=== PATIENT | male | born 1965 | race Caucasian/White ===

== ENCOUNTER 2019-12-28 17:01 | Inpatient (IN) | payer BC, OTHER ==
[2019-12-28] VITALS (7 sets, daily range): BP systolic 104–157; BP diastolic 63–111
[~2019-12-28] VITALS: Ht 178 cm; Wt 75.3 kg
[2019-12-28] MEDS ORDERED: KETOROLAC 30 MG/ML VIAL IVP ONE (17:15)
[2019-12-28] MEDS ORDERED: ASPIRIN 81 MG CHEW (CHILDREN'S ASA) PO ONE (17:15)
--- NOTE | 2019-12-28 17:15 | ED General ---
General Stated Complaint: CP/L ARM PAIN/COLD SWEATS Source of Information: Patient Exam Limitations: No Limitations History of Present Illness Date Seen by Provider: Dec 28, 2019 Time Seen by Provider: 17:13 Initial Comments To ER with left upper chest pain sharp in nature that radiates down the left arm. No cough. No fevers. He does have shortness of breath that also started 1 hour ago. His symptoms began while he was at rest getting ready to go to work at [employer]. He has no fevers or cough or headache. He does not smoke. Timing/Duration: 1-2 Days Severity: Moderate Associated Systoms: Denies Symptoms Allergies and Home Medications Allergies Coded Allergies: No Known Drug Allergies (Unverified , 12/28/19) Patient Home Medication List Home Medication List Reviewed: Yes Review of Systems Review of Systems Constitutional: see HPI; No chills, No fever EENTM: see HPI Respiratory: see HPI, short of breath Cardiovascular: see HPI, chest pain Genitourinary: no symptoms reported Musculoskeletal: no symptoms reported Skin: no symptoms reported Psychiatric/Neurological: No Symptoms Reported Hematologic/Lymphatic: No Symptoms Reported Immunological/Allergic: no symptoms reported Past Xpxcnmr-Uqsdoy-Dkeayh Hx Patient Social History Recent Foreign Travel: No Contact w/Someone Who Travel: No Physical Exam Vital Signs Vital Signs - First Documented 12/28/19 17:18 Temp 36.8 Pulse 52 Resp 18 B/P (MAP) 148/94 (112) Pulse Ox 98 O2 Delivery Room Air Capillary Refill : Height, Weight, BMI Height: '" Weight: lbs. oz. kg; BMI Method: General Appearance: No Apparent Distress, WD/WN Eyes: Bilateral Eye Normal Inspection, Bilateral Eye PERRL, Bilateral Eye EOMI HEENT: PERRL/EOMI, TMs Normal Neck: Full Range of Motion, Normal Inspection Respiratory: Lungs Clear, Normal Breath Sounds, No Accessory Muscle Use, No Respiratory Distress Cardiovascular: Regular Rate, Rhythm, Normal Peripheral Pulses Gastrointestinal: Normal Bowel Sounds, Non Tender, Soft Extremity: Normal Capillary Refill, Normal Inspection Neurologic/Psychiatric: Alert, Oriented x3 Skin: Normal Color, Warm/Dry Progress/Results/Core Measures Suspected Sepsis SIRS Temperature: Pulse: Respiratory Rate: Laboratory Tests 12/28/19 17:25: White Blood Count 9.3 Blood Pressure / Mean: Laboratory Tests 12/28/19 17:25: Creatinine 1.06, INR Comment 0.9, Platelet Count 180, Total Bilirubin 0.2 Results/Orders Lab Results Laboratory Tests Test 12/28/19 17:25 12/28/19 19:20 Range/Units White Blood Count 9.3 4.3-11.0 10^3/uL Red Blood Count 5.07 4.35-5.85 10^6/uL Hemoglobin 15.7 13.3-17.7 G/DL Hematocrit 44 40-54 % Mean Corpuscular Volume 87 80-99 FL Mean Corpuscular Hemoglobin 31 25-34 PG Mean Corpuscular Hemoglobin Concent 35 32-36 G/DL Red Cell Distribution Width 13.3 10.0-14.5 % Platelet Count 180 130-400 10^3/uL Mean Platelet Volume 11.6 H 7.4-10.4 FL Neutrophils (%) (Auto) 34 L 42-75 % Lymphocytes (%) (Auto) 60 H 12-44 % Monocytes (%) (Auto) 5 0-12 % Eosinophils (%) (Auto) 1 0-10 % Basophils (%) (Auto) 1 0-10 % Neutrophils # (Auto) 3.1 1.8-7.8 X 10^3 Lymphocytes # (Auto) 5.6 H 1.0-4.0 X 10^3 Monocytes # (Auto) 0.4 0.0-1.0 X 10^3 Eosinophils # (Auto) 0.1 0.0-0.3 10^3/uL Basophils # (Auto) 0.1 0.0-0.1 10^3/uL Prothrombin Time 12.2 12.2-14.7 SEC INR Comment 0.9 0.8-1.4 Activated Partial Thromboplast Time 29 24-35 SEC D-Dimer 0.56 H 0.00-0.49 UG/ML Sodium Level 134 L 135-145 MMOL/L Potassium Level 4.4 3.6-5.0 MMOL/L Chloride Level 104 98-107 MMOL/L Carbon Dioxide Level 19 L 21-32 MMOL/L Anion Gap 11 5-14 MMOL/L Blood Urea Nitrogen 17 7-18 MG/DL Creatinine 1.06 0.60-1.30 MG/DL Estimat Glomerular Filtration Rate > 60 BUN/Creatinine Ratio 16 Glucose Level 111 H 70-105 MG/DL Calcium Level 8.8 8.5-10.1 MG/DL Corrected Calcium 8.9 8.5-10.1 MG/DL Magnesium Level 1.9 1.6-2.4 MG/DL Total Bilirubin 0.2 0.1-1.0 MG/DL Aspartate Amino Transf (AST/SGOT) 21 5-34 U/L Alanine Aminotransferase (ALT/SGPT) 15 0-55 U/L Alkaline Phosphatase 73 40-136 U/L Myoglobin 84.5 10.0-92.0 NG/ML Troponin I < 0.028 0.128 H <0.028 NG/ML B-Type Natriuretic Peptide 29.5 <100.0 PG/ML Total Protein 6.4 6.4-8.2 GM/DL Albumin 3.9 3.2-4.5 GM/DL My Orders Orders - GORDON BUSH APRN Cbc With Automated Diff (12/28/19 17:10) Magnesium (12/28/19 17:10) Chest 1 View, Ap/Pa Only (12/28/19 17:10) Ekg Tracing (12/28/19 17:10) Comprehensive Metabolic Panel (12/28/19 17:10) Myoglobin Serum (12/28/19 17:10) Protime With Inr (12/28/19 17:10) Partial Thromboplastin Time (12/28/19 17:10) O2 (12/28/19 17:10) Monitor-Rhythm Ecg Trace Only (12/28/19 17:10) Lipid Panel (12/29/19 06:00) Ed Iv/Invasive Line Start (12/28/19 17:10) BNP (12/28/19 17:10) Fibrin Degradation Products (12/28/19 17:10) Troponin I (12/28/19 17:10) Aspirin Chewable Tablet (Baby Aspirin Ch (12/28/19 17:15) Ketorolac Injection (Toradol Injection) (12/28/19 17:15) Troponin I (12/28/19 19:12) Enoxaparin Injection (Lovenox Injection) (12/28/19 20:15) Clopidogrel Tablet (Plavix Tablet) (12/28/19 20:15) Atorvastatin Tablet (Lipitor Tablet) (12/28/19 21:00) Medications Given in ED Current Medications Medications Dose Ordered Sig/Ania Route Start Time Stop Time Status Last Admin Dose Admin Aspirin 324 mg ONCE ONCE PO 12/28/19 17:15 12/28/19 17:16 DC 12/28/19 17:36 324 MG Ketorolac Tromethamine 15 mg ONCE ONCE IVP 12/28/19 17:15 12/28/19 17:16 DC 12/28/19 17:36 15 MG Vital Signs/I&O 12/28/19 17:18 Temp 36.8 Pulse 52 Resp 18 B/P (MAP) 148/94 (112) Pulse Ox 98 O2 Delivery Room Air Capillary Refill : Departure Communication (Admissions) Time/Spoke to Admitting Phy: 20:06 2005-discussed with Dr. Sanots and Dr. Back, we will admit use Lovenox treatment dose, aspirin, Plavix bolus, statin. 1944-he is chest pain-free as he has been since receiving the Toradol. We are awaiting repeat troponin to come back. 2005-still completely pain-free. However his second troponin came back little elevated. Impression Primary Impression: Chest pain Qualified Codes: R07.9 - Chest pain, unspecified Disposition: ADMITTED INPATIENT Condition: Stable Admissions Decision to Admit Reason: Admit from ER (General) Decision to Admit/Date: Dec 28, 2019 Time/Decision to Admit Time: 20:06 Departure-Patient Inst. Decision time for Depature: 19:45 Referrals: NO,LOCAL PHYSICIAN (PCP/Family) Primary Care Physician Patient Instructions: Chest Pain (DC) Add. Discharge Instructions: Follow-up with your doctor later this week for recheck. Return to ER for any worsening. GORDON BUSH APRN Dec 28, 2019 17:15
[2019-12-28 17:35] LABS: BASOPHILS # (AUTO) 0.1 10^3/uL (0.0-0.1); BASOPHILS % (AUTO) 1 % (0-10); EOSINOPHILS # (AUTO) 0.1 10^3/uL (0.0-0.3); EOSINOPHILS % (AUTO) 1 % (0-10); HEMATOCRIT 44 % (40-54); HEMOGLOBIN 15.7 G/DL (13.3-17.7); LYMPHOCYTES # (AUTO) 5.6 X 10^3 (1.0-4.0); LYMPHOCYTES % (AUTO) 60 % (12-44); MEAN CORPUSCULAR HEMOGLOBIN 31 PG (25-34); MEAN CORPUSCULAR HGB CONC 35 G/DL (32-36); MEAN CORPUSCULAR VOLUME 87 FL (80-99); MEAN PLATELET VOLUME 11.6 FL (7.4-10.4); MONOCYTES # (AUTO) 0.4 X 10^3 (0.0-1.0); MONOCYTES % (AUTO) 5 % (0-12); NEUTROPHILS # (AUTO) 3.1 X 10^3 (1.8-7.8); NEUTROPHILS % (AUTO) 34 % (42-75); PLATELET COUNT 180 10^3/uL (130-400); RED CELL DISTRIBUTION WIDTH 13.3 % (10.0-14.5); WHITE BLOOD COUNT 9.3 10^3/uL (4.3-11.0)
--- NOTE | 2019-12-28 17:36 | Diagnostic Imaging Report ---
INDICATION: Chest pain. EXAMINATION: Single AP view of the chest was obtained. COMPARISON: No previous study is available for comparison at this time. FINDINGS: Heart size and pulmonary vasculature are within normal limits, and the lungs are clear, bilaterally. IMPRESSION: Unremarkable chest. Dictated by: Dictated on workstation # [id number]
[2019-12-28 17:47] LABS: INR 0.9 (0.8-1.4); PROTHROMBIN TIME PATIENT 12.2 SEC (12.2-14.7)
[2019-12-28 17:51] LABS: ALBUMIN 3.9 GM/DL (3.2-4.5); CHLORIDE 104 MMOL/L (98-107); POTASSIUM 4.4 MMOL/L (3.6-5.0); SODIUM 134 MMOL/L (135-145)
[2019-12-28 17:53] LABS: CALCIUM 8.8 MG/DL (8.5-10.1)
[2019-12-28 17:54] LABS: GLUCOSE 111 MG/DL (70-105); TOTAL PROTEIN 6.4 GM/DL (6.4-8.2)
[2019-12-28 17:55] LABS: BILIRUBIN,TOTAL 0.2 MG/DL (0.1-1.0); CARBON DIOXIDE 19 MMOL/L (21-32)
[2019-12-28 17:57] LABS: ALKALINE PHOSPHATASE 73 U/L (40-136); CREATININE SERUM 1.06 MG/DL (0.60-1.30); GFR ESTIMATED > 60
[2019-12-28 17:58] LABS: BUN/CREATININE RATIO 16
[2019-12-28 18:00] LABS: ALANINE AMINOTRANSFERASE 15 U/L (0-55)
[2019-12-28 18:01] LABS: MAGNESIUM 1.9 MG/DL (1.6-2.4)
[2019-12-28] MEDS ORDERED: CLOPIDOGREL 300 MG (PLAVIX) TABLET PO ONE (20:15)
[2019-12-28] MEDS ORDERED: ENOXAPARIN 80 MG/0.8 ML (LOVENOX) SYR SC ONE (20:15)
--- OUTSIDE RECORDS SUMMARY | 2019-12-28 20:25 | XMS REPORT | Continuity of Care Document ---
Demographics Preferred Language Unknown Marital Status Unknown Muslim Affiliation Unknown Race Unknown Ethnic Group Unknown Author Organization Unknown Address Unknown Phone Unavailable Allergies There is no data. Medications There is no data. Problems There is no data. Procedures There is no data. Results Test Result Range Complete blood count (CBC) with automate d white blood cell (WBC) differential - 12/28/19 17:25 Blood leukocytes automated count (number/volume) 9.3 10*3/uL 4.3-11.0 Blood erythrocytes automated count (number/volume) 5.07 10*6/uL 4.35-5.85 Venous blood hemoglobin measurement (mass/volume) 15.7 g/dL 13.3-17.7 Blood hematocrit (volume fraction) 44 % 40-54 Automated erythrocyte mean corpuscular volume 87 [ foz_us] 80-99 Automated erythrocyte mean corpuscular h emoglobin (mass per erythrocyte) 31 pg 25-34 Automated erythrocyte mean corpuscular h emoglobin concentration measurement (mass/volume) 35 g/dL 32-36 Automated erythrocyte distribution width ratio 13. 3 % 10.0- 14.5 Automated blood platelet count (count/volume) 180 10*3/uL 130-400 Automated blood platelet mean volume measurement 11.6 [foz_us] 7.4-10.4 Automated blood neutrophils/100 leukocytes 34 % 42-75 Automated blood lymphocytes/100 leukocytes 60 % 12-44 Blood monocytes/100 leukocytes 5 % 0-12 Automated blood eosinophils/100 leukocytes 1 % 0-10 Automated blood basophils/100 leukocytes 1 % 0-10 Blood neutrophils automated count (number/volume) 3.1 10*3 1.8-7.8 Blood lymphocytes automated count (number/volume) 5.6 10*3 1.0-4.0 Blood monocytes automated count (number/volume) 0. 4 10*3 0.0-1.0 Automated eosinophil count 0.1 10*3/uL 0 .0-0.3 Automated blood basophil count (count/volume) 0.1 10*3/uL 0.0-0.1 PT panel in platelet poor plasma by coag ulation assay - 12/28/19 17:25 Prothrombin time (PT) in platelet poor plasma by coagu lation assay 12.2 s 12.2-14.7 INR in platelet poor plasma or blood by coagulation as say 0.9 0.8-1.4 Activated partial thromboplastin time (a PTT) in platelet poor plasma bycoagulation assay - 12/28/19 17:25 Activated partial thromboplastin time (a PTT) in platelet poor plasma bycoagulation assay 29 s 24-35 Comprehensive metabolic panel - 12/28/19 17:25 Serum or plasma sodium measurement (moles/volume) 134 mmol/L 135-145 Serum or plasma potassium measurement (moles/volume) 4.4 mmol/L 3.6-5.0 Serum or plasma chloride measurement (moles/volume) 104 mmol/L 98-107 Carbon dioxide 19 mmol/L 21-32 Serum or plasma anion gap determination (moles/volume) 11 mmol/L 5-14 Serum or plasma urea nitrogen measurement (mass/volume ) 17 mg/dL 7-18 Serum or plasma creatinine measurement (mass/volume) 1.06 mg/dL 0.60-1.30 Serum or plasma urea nitrogen/creatinine mass ratio 16 NRG Serum or plasma creatinine measurement w ith calculation of estimated glomerular filtration rate > NRG Serum or plasma glucose measurement (mass/volume) 111 mg/dL 70-105 Serum or plasma calcium measurement (mass/volume) 8.8 mg/dL 8.5-10.1 Serum or plasma total bilirubin measurement (mass/volu me) 0.2 mg/dL 0.1-1.0 Serum or plasma alkaline phosphatase amparo surement (enzymatic activity/volume) 73 U/L 40-136 Serum or plasma aspartate aminotransfera se measurement (enzymatic activity/volume) 21 U/L 5-34 Serum or plasma alanine aminotransferase measurement (enzymatic activity/volume) 15 U/L 0-55 Serum or plasma protein measurement (mass/volume) 6.4 g/dL 6.4-8.2 Serum or plasma albumin measurement (mass/volume) 3.9 g/dL 3.2-4.5 CALCIUM CORRECTED 8.9 mg/dL 8.5-10.1 Fibrin D-dimer FEU measurement in platel et poor plasma (mass/volume) - 12/28/19 17:25 Fibrin D-dimer FEU measurement in platelet poor plasma (mass/volume) 0.56 ug/mL 0.00-0.49 Magnesium - 12/28/19 17:25 Magnesium 1.9 mg/dL 1.6-2.4 Myoglobin, serum - 12/28/19 17:25 Myoglobin, serum 84.5 ng/mL 10.0-92.0 Serum or plasma lithium measurement (mol es/volume) - 12/28/19 17:25 BNP PT 29.5 pg/mL <100.0 Serum or plasma troponin i.cardiac measu rement (mass/volume) - 12/28/19 17:25 Serum or plasma troponin i.cardiac measurement (mass/v olume) < ng/mL <0.028 Serum or plasma troponin i.cardiac measu rement (mass/volume) - 12/28/19 19:20 Serum or plasma troponin i.cardiac measurement (mass/v olume) 0.128 ng/mL <0.028 Encounters ACCT No. Visit Date/Time Discharge Status Pt. Type Provider Facility Loc./Unit Complaint [id number] 12/28/2019 17:36:00 Document Registration
[2019-12-28] MEDS ORDERED: NS IV 1000 ML 0 ML ONE (21:11)
[2019-12-28] MEDS: NS IV 1000 ML 1,000 ML IV SCH (21:15)
[2019-12-28] MEDS ORDERED: NS IV 1000 ML 1,000 ML ONE (21:18)
[2019-12-28] MEDS ORDERED: NS IV 1000 ML 1,000 ML IV SCH (21:45)
[2019-12-28] MEDS ORDERED: LORazepam INJ 2 MG/ML (ATIVAN) VIAL IVP PRN (21:45)
[2019-12-28] MEDS ORDERED: LORazepam INJ 2 MG/ML (ATIVAN) VIAL IV PRN (21:45)
--- NOTE | 2019-12-28 21:56 | NUR ---
THIS RN TALKED TO E-ICU, UPDATED ON PATIENT STATUS, NOTIFIED OF BRADYCARDIA.
[2019-12-28] MEDS ORDERED: ACETAMINOPHEN 325 MG TABLET PO PRN (22:30)
[2019-12-28] MEDS ORDERED: morphine INJ 4 MG/ML 1 ML (VIAL/SYRINGE) IV PRN (22:30)
[2019-12-28] MEDS ORDERED: NITROGLYCERIN 0.4 MG SL TABS BTL 25'S SL PRN (22:30)
[2019-12-28] MEDS ORDERED: oxyCODONE/APAP 5/325MG (PERCOCET 5) TABLET PO PRN (22:30)
[2019-12-28] MEDS: NITROGLYCERIN 2% OINT 1 GM UNIT DOSE PACKET TOP SCH (23:00)
[2019-12-29] VITALS (11 sets, daily range): BP systolic 94–117; BP diastolic 70–84
[2019-12-29 05:04] LABS: BASOPHILS % (AUTO) 0 % (0-10); EOSINOPHILS # (AUTO) 0.1 10^3/uL (0.0-0.3); EOSINOPHILS % (AUTO) 1 % (0-10); HEMATOCRIT 41 % (40-54); HEMOGLOBIN 14.3 G/DL (13.3-17.7); LYMPHOCYTES # (AUTO) 5.2 X 10^3 (1.0-4.0); LYMPHOCYTES % (AUTO) 55 % (12-44); MEAN CORPUSCULAR HEMOGLOBIN 31 PG (25-34); MEAN CORPUSCULAR HGB CONC 35 G/DL (32-36); MEAN CORPUSCULAR VOLUME 88 FL (80-99); MEAN PLATELET VOLUME 11.5 FL (7.4-10.4); MONOCYTES # (AUTO) 0.5 X 10^3 (0.0-1.0); MONOCYTES % (AUTO) 5 % (0-12); NEUTROPHILS # (AUTO) 3.6 X 10^3 (1.8-7.8); NEUTROPHILS % (AUTO) 38 % (42-75); PLATELET COUNT 165 10^3/uL (130-400); RED CELL DISTRIBUTION WIDTH 13.2 % (10.0-14.5); WHITE BLOOD COUNT 9.4 10^3/uL (4.3-11.0)
[2019-12-29 05:23] LABS: CHLORIDE 106 MMOL/L (98-107); POTASSIUM 4.4 MMOL/L (3.6-5.0); SODIUM 136 MMOL/L (135-145)
[2019-12-29 05:24] LABS: CALCIUM 8.2 MG/DL (8.5-10.1)
[2019-12-29 05:25] LABS: GLUCOSE 102 MG/DL (70-105); TRIGLYCERIDES 146 MG/DL (<150); VLDL CHOLESTEROL 29 MG/DL (5-40)
[2019-12-29 05:27] LABS: CARBON DIOXIDE 22 MMOL/L (21-32)
[2019-12-29 05:29] LABS: CREATININE SERUM 1.02 MG/DL (0.60-1.30); GFR ESTIMATED > 60
[2019-12-29 05:30] LABS: BUN/CREATININE RATIO 15; CHOLESTEROL 125 MG/DL (< 200)
[2019-12-29 05:31] LABS: HDL CHOLESTEROL 39 MG/DL (40-60)
[2019-12-29] MEDS: NITROGLYCERIN 2% OINT 1 GM UNIT DOSE PACKET TOP SCH (06:21)
[2019-12-29] MEDS: NS IV 1000 ML 1,000 ML IV SCH (07:11)
--- NOTE | 2019-12-29 08:15 | Short Stay Summary-Hospitalist ---
History of Present Illness HPI/Chief Complaint Pt is a 54yoCM with no diagnosed PMH who presented to the Er due to chest pain. He states it started at rest just prior to going to work. He states it radiated to his left arm and he was SOB. Original troponin was negative but repeat 2 hours later trended up and he was admitted for observation. He described it as sharp and was given toradol in the ER which made it go away. With increasing troponin was was given Lovenox, Plavix and ASA. He has done well overnight. Despite this treatment though his troponin continues to rise. I examined him while Dr Back was at the bedside discussing cardiac cath or conservative management. Cath was recommended and all risks and benefits were discussed with the patient. He declined cardiac cath and would like to discharge home because he states he "doesn't like doctors." Source: patient Date Seen 12/29/19 Time Seen by a Provider: 08:09 Attending Physician Cherelle Santos MD PCP No,Local Physician Referring Physician Date of Admission Dec 28, 2019 at 20:05 Home Medications & Allergies Home Medications Reviewed patient Home Medication Reconciliation performed by pharmacy medication reconciliations fire control technician g and/or nursing. Patients Allergies have been reviewed. Allergies Allergies Coded Allergies No Known Drug Allergies (Unverified12/28/19) Past Caskmrj-Gcqjki-Qxriiv Hx Past Med/Social Hx: Reviewed Nursing Past Med/Soc Hx Patient Social History Employed/Student: employed Alcohol Use: Denies Use Recreational Drug Use: No Smoking Status: Former Smoker (quite 2016) Recent Foreign Travel: No Contact w/other who traveled: No Recent Infectious Disease Expo: No Family History Reviewed Nursing Family Hx No Pertinent Family Hx Review of Systems Constitutional: No chills, No fever EENTM: no symptoms reported Respiratory: see HPI, short of breath Cardiovascular: see HPI, chest pain; No edema, No Hx of Intervention, No palpitations, No syncope Gastrointestinal: No abdominal pain, No constipation, No nausea, No vomiting Genitourinary: No dysuria, No incontinence Musculoskeletal: muscle cramps Skin: no symptoms reported Psychiatric/Neurological: No Symptoms Reported Physical Exam Physical Exam Vital Signs Vital Signs - First Documented 12/28/19 17:18 Temp 36.8 Pulse 52 Resp 18 B/P (MAP) 148/94 (112) Pulse Ox 98 Capillary Refill : Less Than 3 Seconds Height, Weight, BMI Height: '" Weight: lbs. oz. kg; 23.38 BMI Method: General Appearance: No Apparent Distress, WD/WN, Thin Eyes: Bilateral Eye Normal Inspection, Bilateral Eye PERRL, Bilateral Eye EOMI HEENT: PERRL/EOMI, Moist Mucous Membranes; No Scleral Icterus (L), No Scleral Icterus (R); Other (poor dentition) Neck: Normal Inspection, Supple Respiratory: Lungs Clear, No Accessory Muscle Use, No Respiratory Distress Cardiovascular: Regular Rate, Rhythm, No JVD, No Murmur Gastrointestinal: Normal Bowel Sounds, Non Tender, Soft; No Distended, No Guarding Extremity: Normal Inspection, Non Tender; No Swelling Neurologic/Psychiatric: Alert, Oriented x3, Normal Mood/Affect Skin: Normal Color, Warm/Dry Results Results/Procedures Labs Laboratory Tests 12/28/19 17:25 12/29/19 04:57 Patient resulted labs reviewed. Imaging [facility]. [place], [place] NAME: LYDIA ROSALES [facility] REC#: [id number] PT STATUS: REG ER : 1965 PHYSICIAN: GORDON BUSH APRN ADMIT DATE: 12/28/19/ER Signed Date of Exam:12/28/19 CHEST 1 VIEW, AP/PA ONLY INDICATION: Chest pain. EXAMINATION: Single AP view of the chest was obtained. COMPARISON: No previous study is available for comparison at this time. FINDINGS: Heart size and pulmonary vasculature are within normal limits, and the lungs are clear, bilaterally. IMPRESSION: Unremarkable chest. Dictated by: Dictated on workstation # [id number] Dict: 12/28/191729 Trans: 12/28/191935 [facility] [id number] Interpreted by: SNEHA SOLROIO MD Electronically signed by: SNEHA SOLORIO MD 12/28/191935 Short Stay Diagnosis Discharge Diagnosis-Short Stay Admission Diagnosis NSTEMI Final Discharge Diagnosis NSTEMI Conclusion Plan NSTEMI Chest pain now resolved but troponin trending up Continue on ASA, Plavix, and statin Cardiology consulted, appreciate recs Cardiac Cath recommended, pt declined I personally discussed with patient the risk of worsening disease that could result in significant heart damage and debility and even , he expressed understanding Advised to ambulate first and make sure no recurrence of chest pain Will likely DC home this afternoon if remains chest pain free Clinical Quality Measures AMI/AHF: ASA po Prior to arrival: No DVT/VTE Risk/Contraindication: Risk Factor Score Per Nursin RFS Level Per Nursing on Admit: 2=Moderate SANDIE JONES MD Dec 29, 2019 08:15
[2019-12-29] MEDS ORDERED: ASPI-999 PO (08:24)
[2019-12-29] MEDS ORDERED: CLOP75TA28 PO (08:24)
[2019-12-29] MEDS ORDERED: ATOR20TA66 PO (08:24)
[2019-12-29] MEDS ORDERED: ENOXAPARIN 80 MG/0.8 ML (LOVENOX) SYR SC SCH (09:00)
[2019-12-29] MEDS ORDERED: CLOPIDOGREL 75 MG (PLAVIX) TABLET PO SCH (09:00)
[2019-12-29] MEDS ORDERED: ASPIRIN 81 MG CHEW (CHILDREN'S ASA) PO SCH (09:00)
--- NOTE | 2019-12-29 09:44 | Consultation-Cardiology ---
HPI-Cardiology Cardiology Consultation: Date of Consultation 12/29/19 Time Seen by a Provider: 07:50 Date of Admission Attending Physician Cherelle Santos MD Admitting Physician No,Local Physician Consulting Physician SATNAM BOTELLO MD, FACP, FACC HPI: Chief Complaint: CC: Chest discomfort HPI 54 yo man admitted to the Hospitalist [facility] [place], [place] on the night of 12/28/19 with midsternal, sharp chest pain that radiated to the L shoulder and was associated with some diaphoresis and shortness of breath. It was relieved in ER with Toradol. Chest pain did not recur but did have transient L shoulder discomfort during the night. No symptoms this morning. Denies fever of chills. Has never experienced such chest discomfort before. Denies shortness of breath or leg swelling or cough Review of Systems-Cardiology Review of Systems Constitutional: No malaise, No tiredness, No weight loss, No weight gain Eyes: No vision change Ears/Nose/Throat: No ear discharge, No nasal drainage, No recent hearing loss Respiratory: As described under HPI Cardiovascular: As described under HPI Gastrointestinal: No constipation, No diarrhea, No vomiting Genitourinary: No dysuria, No hematuria, No urine frequency changes Musculoskeletal: No back pain, No joint pain Skin: No rash, No ulcerations Psychiatric/Neurological: No seizure, No focal weakness, No syncope Hematologic: No bleeding abnormalities QOQ-Hfueyi-Jpzwal Hx Patient Social History Employed/Student: employed Alcohol Use: Denies Use Recreational Drug Use: No Smoking Status: Former Smoker (quite 2016) Recent Foreign Travel: No Recent Infectious Disease Expo: No Hospitalization with Isolation: Denies Past Medical History PMH As described under Assessment. Family Medical History Family Medical History: Does not report fam h/o early CAD Allergies and Home Medications Allergies Coded Allergies: No Known Drug Allergies (Unverified , 12/28/19) Home Medications Aspirin 81 Mg Tab.chew, 81 MG PO DAILY@0900 Prescribed by: SANDIE PRICE on 12/29/19 08 Atorvastatin Calcium 20 Mg Tablet, 40 MG PO HS Prescribed by: SANDIE PRICE on 12/29/19823 Clopidogrel Bisulfate 75 Mg Tablet, 75 MG PO DAILY Prescribed by: SANDIE PRICE on 12/29/19823 Patient Home Medication List Home Medication List Reviewed: Yes Physical Exam-Cardiology Physical Exam Vital Signs/I&O 12/28/19 12/28/19 12/28/19 12/28/19 21:45 21:59 22:00 22:30 Pulse 44 46 B/P (MAP) 157/96 (116) 126/74 (91) 110/63 (79) Pulse Ox 100 99 100 O2 Delivery Room Air Room Air Room Air Room Air 12/28/19 12/28/19 12/29/19 12/29/19 23:00 23:08 00:00 00:00 Temp 36.8 Pulse 69 B/P (MAP) 104/68 (80) Pulse Ox 100 100 O2 Delivery Room Air Room Air Room Air 12/29/19 12/29/19 12/29/19 12/29/19 00:00 01:00 01:00 02:00 Pulse 47 58 58 54 B/P (MAP) 94/70 (78) 113/75 (88) 113/84 (94) Pulse Ox 99 99 99 O2 Delivery Room Air Room Air Room Air 12/29/19 12/29/19 12/29/19 12/29/19 03:00 04:00 04:00 04:00 Temp 36.9 Pulse 53 50 B/P (MAP) 108/76 (87) 105/77 (86) Pulse Ox 98 99 O2 Delivery Room Air Room Air Room Air 12/29/19 12/29/19 12/29/19 12/29/19 05:00 07:00 07:00 08:00 Pulse 54 52 51 B/P (MAP) 103/71 (82) 108/76 (87) Pulse Ox 97 100 O2 Delivery Room Air Room Air Room Air 12/29/19 12/29/19 08:00 09:28 Pulse 61 B/P (MAP) 111/71 (84) Pulse Ox 100 100 O2 Delivery Room Air Room Air 12/29/19 00:00 Intake Total 0 ml Balance 0 ml Capillary Refill : NONE Constitutional: AAO x 3, well-developed, well-nourished HEENT: PERRL, EOMI, hearing is well preserved; No xanthelasmas are seen Neck: carotid pulses are 2 + bilaterally, with good upstrokes Respiratory: No accessory muscle use; other (good, bilateral air entry) Cardiovascular: regular rate-rhythm, S1 and S2 Gastrointestinal: No tender; soft; No guarding, No rebound; audible bowel sounds Extremities: No clubbing, No cyanosis, No significant edema Neurologic/Psychiatric: oriented x 3, other (moves all limbs equally) Skin: No rash on exposed areas, No ulcerations on exposed areas Data Review Labs Laboratory Tests 12/28/19 17:25: White Blood Count 9.3, Red Blood Count 5.07, Hemoglobin 15.7, Hematocrit 44, Mean Corpuscular Volume 87, Mean Corpuscular Hemoglobin 31, Mean Corpuscular Hemoglobin Concent 35, Red Cell Distribution Width 13.3, Platelet Count 180, Mean Platelet Volume 11.6H, Neutrophils (%) (Auto) 34L, Lymphocytes (%) (Auto) 60H, Monocytes (%) (Auto) 5, Eosinophils (%) (Auto) 1, Basophils (%) (Auto) 1, Neutrophils # (Auto) 3.1, Lymphocytes # (Auto) 5.6H, Monocytes # (Auto) 0.4, Eosinophils # (Auto) 0.1, Basophils # (Auto) 0.1, Prothrombin Time 12.2, INR Comment 0.9, Activated Partial Thromboplast Time 29, D-Dimer 0.56H, Sodium Level 134L, Potassium Level 4.4, Chloride Level 104, Carbon Dioxide Level 19L, Anion Gap 11, Blood Urea Nitrogen 17, Creatinine 1.06, Estimat Glomerular Filtration Rate > 60, BUN/Creatinine Ratio 16, Glucose Level 111H, Calcium Level 8.8, Corrected Calcium 8.9, Magnesium Level 1.9, Total Bilirubin 0.2, Aspartate Amino Transf (AST/SGOT) 21, Alanine Aminotransferase (ALT/SGPT) 15, Alkaline Phosphatase 73, Myoglobin 84.5, Troponin I < 0.028, B-Type Natriuretic Peptide 29.5, Total Protein 6.4, Albumin 3.9 12/28/19 19:20: Troponin I 0.128H 12/29/19 00:14: Troponin I 0.537*H 12/29/19 04:57: White Blood Count 9.4, Red Blood Count 4.67, Hemoglobin 14.3, Hematocrit 41, Mean Corpuscular Volume 88, Mean Corpuscular Hemoglobin 31, Mean Corpuscular Hemoglobin Concent 35, Red Cell Distribution Width 13.2, Platelet Count 165, Mean Platelet Volume 11.5H, Neutrophils (%) (Auto) 38L, Lymphocytes (%) (Auto) 55H, Monocytes (%) (Auto) 5, Eosinophils (%) (Auto) 1, Basophils (%) (Auto) 0, Neutrophils # (Auto) 3.6, Lymphocytes # (Auto) 5.2H, Monocytes # (Auto) 0.5, Eosinophils # (Auto) 0.1, Basophils # (Auto) 0.0, Sodium Level 136, Potassium Level 4.4, Chloride Level 106, Carbon Dioxide Level 22, Anion Gap 8, Blood Urea Nitrogen 15, Creatinine 1.02, Estimat Glomerular Filtration Rate > 60, BUN/Creatinine Ratio 15, Glucose Level 102, Calcium Level 8.2L, Triglycerides Level 146, Cholesterol Level 125, LDL Cholesterol Direct 72, VLDL Cholesterol 29, HDL Cholesterol 39L Laboratory Tests 12/28/19 17:25 12/29/19 04:57 A/P-Cardiology Assessment/Admission Diagnosis Ac NSTEMI Sinus bradycardia, precludes use of beta-bari Quit smoking in or around 2014 Discussion and Recomendations * Symptoms, ECG and labs are consistent with ac NSTEMI. I had a long and detailed discussion with him and explained the diagnosis to him and answered questions. Given NSTEMI and recurrent symptoms last night, card cath is recommended. I discussed the rationale, procedure, risk, benefits, potential complications and alternatives of card cath and possible ad hoc coronary intervention with him and answered questions. He understands all of the issue and refuses invasive management. Wishes to leave and does not wish to stay in the hospital any longer. Does seem to agree to taking meds. Is on DAPT and statins that were initiated during this hospitalization (was taking no meds at home). Cannot give beta-bari because has demonstrated intermittent, significant sinus bradycardia during hospitalization (albeit asymptomatic) with resting heart rate in the low forties and high thirties * Outpatient f/u is advised * We have advised him to continue to refrain from tobacco use * I discussed his case in detail with Dr Price this am Clinical Quality Measures AMI/AHF: ASA po Prior to arrival: No DVT/VTE Risk/Contraindication: Risk Factor Score Per Nursin RFS Level Per Nursing on Admit: 2=Moderate SATNAM BOTELLO MD [facility] Dec 29, 2019 09:44
--- NOTE | 2019-12-29 09:53 | NUR ---
DR BOTELLO SPOKE TO PT ABOUT NEEDING A HEART CATH. PT STATED THAT HE DIDN'T WANT A CATH. DR BOTELLO AND DR JONES EDUCATED PT ON RISKS OF NOT HAVING A CATH DONE. PT STATED THAT HE UNDERSTOOD BUT STILL REFUSED.
--- NOTE | 2019-12-29 11:00 | Discharge Inst-Simple/Standard ---
Discharge Inst-Standard Discharge Medications New, Converted or Re-Newed RX: Transmitted to Pharmacy Patient Instructions/Follow Up Plan of Care/Instructions/FU: Please continue to take your medications as written. Please follow up with a primary care doctor and with Dr Back. Activity as Tolerated: Yes Discharge Diet: Cardiac Diet Return to The Hospital For: Chest pain, shortness of breath, fever, palpitations, if you feel you are getting worse. SANDIE JONES MD Dec 29, 2019 11:00
== END 2019-12-29 11:25 | disposition home or self-care (01) | DRG 282 ==
LOC: EDUNIT# 17:01 → ER 17:03 → ICU 20:05
PROVIDERS: ADMIT Internal Medicine; ATTEND Internal Medicine
DX: I21.4 Non-ST elevation (NSTEMI) myocardial infarction (principal); R00.1 Bradycardia, unspecified; Z87.891 Personal history of nicotine dependence
CPT/HCPCS: 36415; 71045; 80048; 80053; 80061; 83735; 83874; 83880; 84484; 85025; 85379; 85610; 85730; 93005; 93041